=== PATIENT | female | born 1975 | race Caucasian/White ===

== ENCOUNTER 2017-08-08 07:12 | Emergency (ER) | payer BC, OTHER ==
--- NOTE | 2017-08-08 08:05 | RAD ---
TWO VIEW CHEST: HISTORY: Cough. FINDINGS: Lung kiser are clear. No evidence of infiltrate. Heart and mediastinum unremarkable. IMPRESSION: No acute process identified. POS: [facility]
== END 2017-08-08 08:08 | disposition home or self-care (01) ==
LOC: SCSER 07:12
DX: J20.9 Acute bronchitis, unspecified (principal); I10 Essential (primary) hypertension; F17.210 Nicotine dependence, cigarettes, uncomplicated
CPT/HCPCS: 71020; 99406